=== PATIENT | male | born 1950 | race American Indian/Alaskan Native ===

== ENCOUNTER 2021-03-29 12:57 | Observation (INO) | payer MEDICARE, OTHER ==
[~2021-03-29 12:57] MED LIST: amLODIPine 5 MG Tab PO SCH
[2021-03-29] MEDS ORDERED: Sodium Chloride 0.9% 10 ML Syringe FLUSH PRN (13:13)
--- NOTE | 2021-03-29 13:25 | EDM.PDOC ---
ED HPI GENERAL MEDICAL PROBLEM - General Chief Complaint: General Stated Complaint: LIGHTHEADED, GENERALIZED WEAKNESS Time Seen by Provider: 03/29/21 13:10 Source of Information: Reports: Patient History Limitations: Reports: No Limitations - History of Present Illness INITIAL COMMENTS - FREE TEXT/NARRATIVE: 71 YO WM PRESENTS TO ER COMPLAINING OF LIGHTHEADEDNESS AND GENERALIZED WEAKNESS. PT RECEIVES DIALYSIS T-TH-SAT AND RECEIVED TREATMENT YESTERDAY. PT REPORTS THEY PULLED OFF MORE FLUID THEN NORMAL. [place] AND LEFT YESTERDAY AFTER DIALYSIS TO MEET SOMEONE FOR BUSINESS IN [place]. PT REPORTS HE STAYED AT A HOTEL LAST NIGHT AND WOKE THIS AM TO HEAD TO [place]. PT REPORTS PERSON HE WAS MEETING WAS LATE TO SHOW UP SO HE DECIDED TO TAKE A NAP IN HIS CAR. PT REPORTS HE PUT THE SEAT BACK AND IMMEDIATELY FELT LIGHTHEADED, NEAR SYNCOPE WITH SOME NUMBNESS TO HIS LIPS AND AROUND HIS MOUTH. PT REPORTS HE HAS NO CELLPHONE SO HE DROVE HIMSELF TO A [place] WHERE EMS WAS CALLED. PT DENIES HEADACHE, NO CHEST PAIN, NO FEVER/CHILLS OR COUGH/CONGESTION. PT DENIES ANY ASSOCIATED NEUROLOGICAL SYMPTOMS- NO HEADACHE OR NECK PAIN, NO FACIAL DROOP, NO SLURRED SPEECH, NO SIL FILIBERTO, NO UNILATERAL WEAKNESS OR NUMBNESS. PT ALERT AND ORIENTED X ; GCS-15; NAD. PT TRAVELLING ALONE WITHOUT CELLPHONE OR NEXT OF KIN CONTACT INFORMATION. Onset: Sudden Duration: Resolved Prior to Arrival Location: Reports: Face, Generalized Severity: Mild Improves with: Reports: None Worsens with: Reports: None Associated Symptoms: Reports: No Other Symptoms ED ROS GENERAL - Review of Systems Review Of Systems: See Below Constitutional: Reports: Weakness, Fatigue HEENT: Reports: No Symptoms Respiratory: Reports: No Symptoms Cardiovascular: Reports: Lightheadedness Endocrine: Reports: No Symptoms GI/Abdominal: Reports: No Symptoms : Reports: No Symptoms Musculoskeletal: Reports: No Symptoms Skin: Reports: No Symptoms Neurological: Reports: Dizziness, Numbness, Tingling, Weakness. Denies: Headache, Paresthesia, Pre-Existing Deficit, Seizure, Syncope, Tremors, Trouble Speaking, Difficulty Walking, Change in Speech, Gait Disturbance Psychiatric: Reports: No Symptoms Hematologic/Lymphatic: Reports: No Symptoms Immunologic: Reports: No Symptoms ED EXAM, GENERAL - Physical Exam Exam: See Below Exam Limited By: No Limitations General Appearance: Alert, WD/WN, No Apparent Distress Eye Exam: Bilateral Eye: EOMI, PERRL Head: Atraumatic, Normocephalic Neck: Normal Inspection, Supple, Non-Tender, Full Range of Motion Respiratory/Chest: No Respiratory Distress, Lungs Clear, Normal Breath Sounds, No Accessory Muscle Use, Chest Non-Tender Cardiovascular: Normal Peripheral Pulses, Regular Rate, Rhythm, No Edema, No Gallop, No JVD, No Murmur, No Rub GI/Abdominal: Normal Bowel Sounds, Soft, Non-Tender, No Organomegaly, No Distention, No Abnormal Bruit, No Mass Back Exam: Normal Inspection, Full Range of Motion, NT Extremities: Normal Inspection, Normal Range of Motion, Non-Tender, Normal Capillary Refill, No Pedal Edema Neurological: Alert, Oriented, CN II-XII Intact, Normal Cognition, Normal Gait, No Motor/Sensory Deficits Psychiatric: Normal Affect, Normal Mood Skin Exam: Warm, Dry, Intact, Normal Color, No Rash Lymphatic: No Adenopathy #1 Interpretation EKG Date: 03/29/21 Time: 13:20 Rhythm: NSR Rate (Beats/Min): 57 [place]: Normal P-Wave: Present QRS: RBBB ST-T: Normal QT: Normal Comparison: NA - No Prior EKG Course - Orders/Labs/Meds Orders: Active Orders 24 hr Category Date Time Status EKG Documentation Completion [RC] ASDIRECTED Care 03/29/21 13:14 Active Peripheral IV Care [RC] . DIRECTED Care 03/29/21 13:14 Active Head wo Cont [CT] Stat Exams 03/29/21 13:34 Ordered Sodium Chloride 0.9% [Saline Flush] Med 03/29/21 13:13 Active 10 ml FLUSH Q8HR PRN Peripheral IV Insertion Adult [OM.PC] Routine Oth 03/29/21 13:13 Ordered EKG 12 Lead [EK] Stat Ther 03/29/21 13:13 Ordered Medication Orders Sodium Chloride (Sodium Chloride 0.9% 10 Ml Syringe) 10 ml FLUSH Q8HR PRN PRN Reason: keep vein open Labs: Laboratory Tests 03/29/21 03/29/21 03/29/21 Range/Units 13:20 13:20 13:20 WBC 6.15 (5.00-10.00) 10^3/uL RBC 3.54 L (4.50-6.00) 10^6/uL Hgb 11.2 L (13.0-17.0) g/dL Hct 34.0 L (40.0-52.0) % MCV 96.0 H (82.0-92.0) fL MCH 31.6 H (27.0-31.0) pg MCHC 32.9 (32.0-36.0) g/dL RDW 12.6 (11.5-14.5) % Plt Count 172 (150-400) 10^3/uL MPV 9.4 (7.4-10.4) fL Immature Gran % (Auto) 0.2 (0.0-5.0) % Neut % (Auto) 62.3 (50.0-70.0) % Lymph % (Auto) 18.9 L (20.0-40.0) % [place] % (Auto) 9.3 H (2.0-8.0) % Eos % (Auto) 8.6 H (1.0-3.0) % Baso % (Auto) 0.7 (0.0-1.0) % Neut # (Auto) 3.84 (2.50-7.00) 10^3/uL Lymph # (Auto) 1.16 (1.00-4.00) 10^3/uL [place] # (Auto) 0.57 (0.10-0.80) 10^3/uL Eos # (Auto) 0.53 H (0.10-0.30) 10^3/uL Baso # (Auto) 0.04 (0.00-0.10) 10^3/uL Immature Gran # (Auto) 0.01 (0.00-0.50) 10^3/uL Sodium 137 (136-145) mmol/L Potassium 5.1 (3.5-5.1) mmol/L Chloride 102 (98-107) mmol/L Carbon Dioxide 24.5 (21.0-32.0) mmol/L Anion Gap 15.6 H (5-15) mmol/L BUN 39 H (7-18) mg/dL Creatinine 4.00 H (0.51-1.17) mg/dL Est Cr Clr Drug Dosing TNP Estimated GFR (MDRD) 15 mL/min Glucose 131 (70-140) mg/dL POC Glucose 102 (70-140) mg/dL Calcium 8.3 L (8.7-10.3) mg/dL Total Bilirubin 0.4 (0.2-1.0) mg/dL AST 18 (15-37) U/L ALT 26 (14-63) U/L Alkaline Phosphatase 120 H (46-116) U/L Creatine Kinase 44 (26-276) U/L Troponin I High Sens 11.000 (0-76.000) pg/mL B-Natriuretic Peptide 526 H (0-100) pg/mL Total Protein 7.2 (6.4-8.2) g/dL Albumin 3.32 L (3.40-5.00) g/dL Meds: Medications Generic Name Dose Route Start Last Admin Trade Name Freq PRN Reason Stop Dose Admin Sodium Chloride 10 ml 03/29/21 13:13 Sodium Chloride 0.9% 10 Ml Syringe FLUSH Q8HR PRN keep vein open - Radiology Interpretation Free Text/Narrative:: CXR- CM WITH BORDERLINE CENTRAL VENOUS CONGESTION CT HEAD- NAD Departure - Departure Time of Disposition: 14:31 Disposition: Refer to Observation Condition: Fair Clinical Impression: Near syncope - Discharge Information Referrals: Randall Rowley, BEHAVIOR CLINICIAN [Nurse Practitioner] - Forms: ED Department Discharge - My Orders Last 24 Hours: My Active Orders 03/29/21 13:13 Sodium Chloride 0.9% [Saline Flush] 10 ml FLUSH Q8HR PRN Peripheral IV Insertion Adult [OM.PC] Routine EKG 12 Lead [EK] Stat 03/29/21 13:14 EKG Documentation Completion [RC] ASDIRECTED Peripheral IV Care [RC] . DIRECTED 03/29/21 13:34 Head wo Cont [CT] Stat - Assessment/Plan Last 24 Hours: My Active Orders 03/29/21 13:13 Sodium Chloride 0.9% [Saline Flush] 10 ml FLUSH Q8HR PRN Peripheral IV Insertion Adult [OM.PC] Routine EKG 12 Lead [EK] Stat 03/29/21 13:14 EKG Documentation Completion [RC] ASDIRECTED Peripheral IV Care [RC] . DIRECTED 03/29/21 13:34 Head wo Cont [CT] Stat Assessment:: 1. NEAR SYNCOPE 2. GENERALIZED WEAKNESS Plan: 1. ADMIT TO MEDICINE- OBS- ACCEPTING RANDALL ROWLEY @1734 2. SUPPORTIVE CARE 3. REPEAT TROP I Q6
--- NOTE | 2021-03-29 13:50 | CR ---
[id number] RAD/RAD Chest PA or AP 1V EXAM: FRONTAL CHEST INDICATION: LIGHTHEADED. COMPARISON: None. DISCUSSION: Cardiomegaly with borderline central vascular congestion. Right internal jugular approach dialysis catheter tip right atrium. Sternotomy. No effusions. IMPRESSION: 1. Cardiomegaly with borderline central vascular congestion. Cornelius Hilliard MD 03/29/21 0516 Thank you for allowing us to participate in the care of your patient.
[2021-03-29 13:57] LABS: ANION GAP 15.6 mmol/L (5-15); CHLORIDE,CL 102 mmol/L (98-107); SODIUM,NA 137 mmol/L (136-145)
--- NOTE | 2021-03-29 14:13 | CT ---
[id number] CT/CT Head WO IV EXAM: NONCONTRAST HEAD CT INDICATION: NEAR SYNCOPE. COMPARISON: None. DISCUSSION: Mild to moderate generalized atrophy. Mild multifocal white matter hypoattenuation is nonspecific, but generally ascribed to chronic small vessel ischemia. No mass effect or midline shift. No acute hemorrhage or extra-axial fluid collection. No acute territorial infarct is identified. Chronic appearing fat-containing medial right orbital wall fracture. Minor scattered paranasal sinus mucosal thickening. IMPRESSION: 1. No acute findings. Cornelius Hilliard MD 03/29/21 [id number] Thank you for allowing us to participate in the care of your patient.
[2021-03-29] MEDS ORDERED: 50% Dextrose in Water 50 ML Syringe IVPUSH PRN (17:07)
[2021-03-29] MEDS ORDERED: Glucagon,Human Recombinant 1 MG Vial IM PRN (17:07)
[2021-03-29] MEDS: Clopidogrel 75 MG Tab PO SCH (18:10)
[2021-03-29] MEDS ORDERED: Atropine 0.1 MG/ML 10 ML Syringe IVPUSH PRN (20:11)
[2021-03-29] MEDS ORDERED: Nitroglycerin 0.4 MG Tab.SL SL PRN (20:11)
[2021-03-29] MEDS ORDERED: Lidocaine 2% 100 MG/5 ML Syringe IVPUSH PRN (20:11)
[2021-03-29] MEDS ORDERED: EPINEPHrine 1:10,000 1 MG/10 ML Syringe IVPUSH PRN (20:11)
[2021-03-29] MEDS ORDERED: amLODIPine 5 MG Tab PO SCH (21:00)
[2021-03-29] MEDS ORDERED: atorvaSTATin 40 MG Tab PO SCH (21:00)
--- NOTE | 2021-03-30 08:48 | PCM.HP.2 ---
H&P History of Present Illness - General Date of Service: 03/30/21 Admit Problem/Dx: Admission Diagnosis/Problem Admission Diagnosis/Problem Near syncope Source of Information: Patient - Related Data Allergies/Adverse Reactions: Allergies Allergy/AdvReac Type Severity Reaction Status Date / Time alcohol Allergy Cannot Verified 03/29/21 15:33 Remember aspirin Allergy Cannot Verified 03/29/21 15:33 Remember NSAIDS (Non-Steroidal Allergy Cannot Verified 03/29/21 15:33 Anti-Inflamma Remember Home Medications: Home Meds Apixaban [Eliquis] 2.5 mg PO BID 03/29/21 [History] Clopidogrel [Plavix] 75 mg PO DAILY 03/29/21 [History] Insulin Aspart [Novolog Flexpen] 5 units SQ DAILY 03/29/21 [History] Insulin Detemir [Levemir Flextouch] 14 units SQ DAILY 03/29/21 [History] amLODIPine [Norvasc] 5 mg PO BEDTIME 03/29/21 [History] atorvaSTATin [Lipitor] 40 mg PO BEDTIME 03/29/21 [History] Past Medical History HEENT History: Reports: Hard of Hearing, Impaired Vision Cardiovascular History: Reports: Bypass, Hypertension, LA, Stents Respiratory History: Reports: SOB Gastrointestinal History: Reports: None Genitourinary History: Reports: Dialysis Musculoskeletal History: Reports: Arthritis, Back Pain, Chronic, Other (See Below) Other Musculoskeletal History: polio, spine curvature Neurological History: Reports: None Psychiatric History: Reports: None Endocrine/Metabolic History: Reports: Diabetes, Type I Hematologic History: Reports: Blood Transfusion(s) Dermatologic History: Reports: None - Infectious Disease History Infectious Disease History: Reports: Chicken Pox, Influenza, Measles, Mumps - Past Surgical History HEENT Surgical History: Reports: Eye Surgery Other HEENT Surgeries/Procedures: vitreous hemorrhage Cardiovascular Surgical History: Reports: Coronary Artery Bypass, Coronary Artery Stent GI Surgical History: Reports: Appendectomy Male Surgical History: Reports: None Oncologic Surgical History: Reports: Other (See Below) Other Oncologic Surgeries/Procedures: pt believes he had colon CA Social & Family History - Tobacco Use Tobacco Use Status *Q: Former Tobacco User Used Tobacco, but Quit: Yes Month/Year Tobacco Last Used: 1999 Second Hand Smoke Exposure: No - Caffeine Use Caffeine Use: Reports: None - Recreational Drug Use Recreational Drug Use: No H&P Review of Systems - Review of Systems: Review Of Systems: See Below General: Reports: No Symptoms HEENT: Reports: No Symptoms Pulmonary: Reports: No Symptoms Cardiovascular: Reports: No Symptoms Gastrointestinal: Reports: No Symptoms Genitourinary: Reports: Other (pertineal dialysius. ) Musculoskeletal: Reports: No Symptoms Skin: Reports: No Symptoms Psychiatric: Reports: No Symptoms Neurological: Reports: No Symptoms Hematologic/Lymphatic: Reports: No Symptoms Immunologic: Reports: No Symptoms Exam - Exam Exam: See Below - Vital Signs Vital Signs: Last Vital Signs Temp 98.5 F 03/30/21 06:28 Pulse 54 L 03/30/21 06:28 Resp 20 03/30/21 03:00 BP 153/56 H 03/30/21 06:28 Pulse Ox 96 03/30/21 06:28 Weight: 182 lb - Exam Quality Assessment: No: Supplemental Oxygen General: Alert, Oriented, 4 Lungs: Clear to Auscultation, Normal Respiratory Effort Cardiovascular: Regular Rate, Regular Rhythm GI/Abdominal Exam: Normal Bowel Sounds (Male) Exam: Deferred Back Exam: No: CVA Tenderness (L), CVA Tenderness (R) Extremities: No: Pedal Edema Peripheral Pulses: 2+: Radial (L), Radial (R) Skin: Warm, Dry, Intact Neurological: Cranial Nerves Intact, Reflexes Equal Bilateral Neuro Extensive - Mental Status: Alert, Oriented x3, Normal Mood/Affect, Normal Cognition Neuro Extensive - Motor, Sensory, Reflexes: CN II-XII Intact, Normal Gait, Normal Reflexes Psychiatric: Alert, Normal Affect, Normal Mood - Patient Data Lab Results Last 24 hrs: Laboratory Results - last 24 hr 03/29/21 03/29/21 03/29/21 Range/Units 13:20 13:20 13:20 WBC 6.15 (5.00-10.00) 10^3/uL RBC 3.54 L (4.50-6.00) 10^6/uL Hgb 11.2 L (13.0-17.0) g/dL Hct 34.0 L (40.0-52.0) % MCV 96.0 H (82.0-92.0) fL MCH 31.6 H (27.0-31.0) pg MCHC 32.9 (32.0-36.0) g/dL RDW 12.6 (11.5-14.5) % Plt Count 172 (150-400) 10^3/uL MPV 9.4 (7.4-10.4) fL Immature Gran % (Auto) 0.2 (0.0-5.0) % Neut % (Auto) 62.3 (50.0-70.0) % Lymph % (Auto) 18.9 L (20.0-40.0) % [place] % (Auto) 9.3 H (2.0-8.0) % Eos % (Auto) 8.6 H (1.0-3.0) % Baso % (Auto) 0.7 (0.0-1.0) % Neut # (Auto) 3.84 (2.50-7.00) 10^3/uL Lymph # (Auto) 1.16 (1.00-4.00) 10^3/uL [place] # (Auto) 0.57 (0.10-0.80) 10^3/uL Eos # (Auto) 0.53 H (0.10-0.30) 10^3/uL Baso # (Auto) 0.04 (0.00-0.10) 10^3/uL Immature Gran # (Auto) 0.01 (0.00-0.50) 10^3/uL Sodium 137 (136-145) mmol/L Potassium 5.1 (3.5-5.1) mmol/L Chloride 102 (98-107) mmol/L Carbon Dioxide 24.5 (21.0-32.0) mmol/L Anion Gap 15.6 H (5-15) mmol/L BUN 39 H (7-18) mg/dL Creatinine 4.00 H (0.51-1.17) mg/dL Est Cr Clr Drug Dosing TNP Estimated GFR (MDRD) 15 mL/min Glucose 131 (70-140) mg/dL POC Glucose 102 (70-140) mg/dL Calcium 8.3 L (8.7-10.3) mg/dL Total Bilirubin 0.4 (0.2-1.0) mg/dL AST 18 (15-37) U/L ALT 26 (14-63) U/L Alkaline Phosphatase 120 H (46-116) U/L Creatine Kinase 44 (26-276) U/L Troponin I High Sens 11.000 (0-76.000) pg/mL B-Natriuretic Peptide 526 H (0-100) pg/mL Total Protein 7.2 (6.4-8.2) g/dL Albumin 3.32 L (3.40-5.00) g/dL SARS CoV-2 RNA Rapid JOEY (NEGATIVE) 03/29/21 03/29/21 Range/Units 15:00 19:00 WBC (5.00-10.00) 10^3/uL RBC (4.50-6.00) 10^6/uL Hgb (13.0-17.0) g/dL Hct (40.0-52.0) % MCV (82.0-92.0) fL MCH (27.0-31.0) pg MCHC (32.0-36.0) g/dL RDW (11.5-14.5) % Plt Count (150-400) 10^3/uL MPV (7.4-10.4) fL Immature Gran % (Auto) (0.0-5.0) % Neut % (Auto) (50.0-70.0) % Lymph % (Auto) (20.0-40.0) % [place] % (Auto) (2.0-8.0) % Eos % (Auto) (1.0-3.0) % Baso % (Auto) (0.0-1.0) % Neut # (Auto) (2.50-7.00) 10^3/uL Lymph # (Auto) (1.00-4.00) 10^3/uL [place] # (Auto) (0.10-0.80) 10^3/uL Eos # (Auto) (0.10-0.30) 10^3/uL Baso # (Auto) (0.00-0.10) 10^3/uL Immature Gran # (Auto) (0.00-0.50) 10^3/uL Sodium (136-145) mmol/L Potassium (3.5-5.1) mmol/L Chloride (98-107) mmol/L Carbon Dioxide (21.0-32.0) mmol/L Anion Gap (5-15) mmol/L BUN (7-18) mg/dL Creatinine (0.51-1.17) mg/dL Est Cr Clr Drug Dosing Estimated GFR (MDRD) mL/min Glucose (70-140) mg/dL POC Glucose (70-140) mg/dL Calcium (8.7-10.3) mg/dL Total Bilirubin (0.2-1.0) mg/dL AST (15-37) U/L ALT (14-63) U/L Alkaline Phosphatase (46-116) U/L Creatine Kinase (26-276) U/L Troponin I High Sens 15.200 (0-76.000) pg/mL B-Natriuretic Peptide (0-100) pg/mL Total Protein (6.4-8.2) g/dL Albumin (3.40-5.00) g/dL SARS CoV-2 RNA Rapid JOEY Negative (NEGATIVE) Result Diagrams: 03/29/21 13:20 03/29/21 13:20 Sepsis Event Note - Evaluation Sepsis Screening Result: No Definite Risk - Focused Exam Vital Signs: Vital Signs Temp Pulse Resp BP BP Pulse Ox 03/30/21 06:28 98.5 F 54 L 153/56 H 96 03/30/21 03:00 98.7 F 56 L 20 142/59 H 96 03/29/21 22:34 98.5 F 51 L 20 131/58 L 97 03/29/21 21:11 133/61 Problem List Initiated/Reviewed/Updated: Yes Orders Last 24hrs: Active Orders 24 hr Category Date Time Status Patient Status [ADT] Routine ADT 03/29/21 14:36 Active Cardiac Monitoring [RC] 03,07,11,15,,23 Care 03/29/21 14:37 Active Oxygen Therapy [RC] PRN Care 03/29/21 14:36 Active Up With Assistance [RC] ASDIRECTED Care 03/29/21 14:36 Active VTE/DVT Education [RC] PER UNIT ROUTINE Care 03/29/21 14:36 Active Vital Signs [RC] 03,07,11,15,19,23 Care 03/29/21 14:36 Active Heart Healthy Diet [DIET] Diet 03/29/21 Lunch Active Atropine [Atropine 0.1 MG/ML] Med 03/29/21 20:11 Active See Dose Instructions IVPUSH ASDIRECTED PRN Clopidogrel [Plavix] Med 03/29/21 17:15 Active 75 mg PO DAILY Dextrose 50% in Water Med 03/29/21 17:07 Active 50 ml IVPUSH ASDIRECTED PRN EPINEPHrine [EPINEPHrine 1:10,000] Med 03/29/21 20:11 Active 1 mg IVPUSH ASDIRECTED PRN Glucagon,Human Recombinant [GlucaGen] Med 03/29/21 17:07 Active 1 mg IM ASDIRECTED PRN Insulin Aspart [NovoLOG] Med 03/30/21 09:00 Active 5 unit SUBCUT DAILY Lidocaine 2% [Xylocaine 2%] Med 03/29/21 20:11 Active See Dose Instructions IVPUSH ASDIRECTED PRN Nitroglycerin [Nitrostat] Med 03/29/21 20:11 Active 0.4 mg SL ASDIRECTED PRN amLODIPine [Norvasc] Med 03/29/21 21:00 Active 5 mg PO BEDTIME atorvaSTATin [Lipitor] Med 03/29/21 21:00 Active 40 mg PO BEDTIME Peripheral IV Insertion Adult [OM.PC] Routine Oth 03/29/21 13:13 Ordered Resuscitation Status Routine Resus Stat 03/29/21 14:36 Ordered EKG 12 Lead [EK] Stat Ther 03/29/21 13:13 Stop Req Medication Orders Amlodipine Besylate (Amlodipine 5 Mg Tab) 5 mg PO BEDTIME [facility] Last Admin: 03/29/21 21:11 Dose: 5 mg Documented by: ISADORA Atorvastatin Calcium (Atorvastatin 40 Mg Tab) 40 mg PO BEDTIME [facility] Last Admin: 03/29/21 21:11 Dose: 40 mg Documented by: ISADORA Atropine Sulfate (Atropine 0.1 Mg/Ml 10 Ml Syringe) 0 mg IVPUSH ASDIRECTED PRN PRN Reason: Heart. Clopidogrel Bisulfate (Clopidogrel 75 Mg Tab) 75 mg PO DAILY [facility] Last Admin: 03/29/21 18:10 Dose: 75 mg Documented by: GRABIEL Dextrose/Water (50% Dextrose In Water 50 Ml Syringe) 50 ml IVPUSH ASDIRECTED PRN PRN Reason: Hypoglycemia Epinephrine HCl (Epinephrine 1:10,000 1 Mg/10 Ml Syringe) 1 mg IVPUSH ASDIRECTED PRN PRN Reason: Heart. Glucagon (Glucagon,Human Recombinant 1 Mg Vial) 1 mg IM ASDIRECTED PRN PRN Reason: Hypoglycemia Insulin Aspart (Insulin Aspart 100 Units/Ml 3 Ml Pen Own Med) 5 unit SUBCUT DAILY [facility] Lidocaine HCl (Lidocaine 2% 100 Mg/5 Ml Syringe) 0 mg IVPUSH ASDIRECTED PRN PRN Reason: Heart. Nitroglycerin (Nitroglycerin 0.4 Mg Tab.Sl) 0.4 mg SL ASDIRECTED PRN PRN Reason: Heart. Assessment/Plan Comment:: Please use this H&P as combined DC summary: Mr Quezada is a 71-year-old patient unknown to [facility] who was admitted into OBS status for rule out LA. Patient brought in through ED via EMS after complaining of some generalized weakness lightheadedness and numbness around his lips. Patient is end-stage renal failure currently on dialysis lives in [facility] doctors at [facility]. After dialysis he was on a business trip through [facility]. 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 He notified EMS however never had chest pain fever chills or any URI type symptoms. He is a very poor story and on his medications history. He had no cell phone and no patient next of kin contact information. ED course Cardio biomarkers normal, ECG right bundle branch block sinus bradycardia nothing else to compare Vital signs good afebrile, Covid negative Head CT without any acute findings--some sinus mucosal thickening Chest x-ray cardiomegaly borderline central vascular congestion Final Dx: Rule out LA, this has been ruled out Near Syncope; Hospital course: completely uneventful, Trop normal, VS normal, no fever, no dizziness or syncope, No concerning events on telemetry. Head CT no acute f indings. He was ready for DC the morning on rounds. Disposition/overall plan DC from hospital, patients family member will belt picker F/U with PCP at [place] Report any more syncope episodes or any any other concerns Dialysis in am Please use this H&P as combined DC summary: - Mortality Measure Prognosis:: Good
[2021-03-30] MEDS ORDERED: Insulin Aspart 100 Units/ML 3 ML Pen **OWN MED SUBCUT SCH (09:00)
[2021-03-30] MEDS: Clopidogrel 75 MG Tab PO SCH (09:48)
== END 2021-03-30 11:00 | disposition home or self-care (01) ==
LOC: KA.ED 12:57 → KA.MS 14:36
PROVIDERS: ADMIT Physician Assistant Medical; ATTEND Nurse Practitioner Family
DX: R55 Syncope and collapse (principal); R53.1 Weakness; N18.6 End stage renal disease; I25.2 Old myocardial infarction; I12.0 Hypertensive chronic kidney disease with stage 5 chronic kidney disease or end stage renal disease; E10.22 Type 1 diabetes mellitus with diabetic chronic kidney disease; Z88.8 Allergy status to other drugs, medicaments and biological substances; Z99.2 Dependence on renal dialysis; Z87.891 Personal history of nicotine dependence; Z79.899 Other long term (current) drug therapy; Z20.822 Contact with and (suspected) exposure to COVID-19
CPT/HCPCS: 36415; 70450; 71045; 80053; 82550; 82947; 83880; 84484; 85025; 93005; 99284; 99285-25; A9270-GY; G0378; U0002